=== PATIENT | male | born 1975 | race Caucasian/White ===

== ENCOUNTER 2024-07-16 08:48 | Emergency (ER) | payer OTHER ==
[~2024-07-16] VITALS: Ht 172.7 cm; Wt 82.0 kg
[2024-07-16 08:54] VITALS: O2SAT 98
[2024-07-16] MEDS: KETOROLAC 30MG/ML VIAL IM ONE (09:21)
[2024-07-16 09:51] VITALS: BP 138/86
[2024-07-16] MEDS: IBUPROFEN 400MG TABLET PO ONE (09:51)
[2024-07-16 09:53] VITALS: PULSE 76; RESP 16; O2SAT 99
== END 2024-07-16 09:50 | disposition home or self-care (01) ==
LOC: ER 08:48
DX: S01.01XA Laceration without foreign body of scalp, initial encounter (principal); E11.9 Type 2 diabetes mellitus without complications; G31.89 Other specified degenerative diseases of nervous system; W18.39XA Other fall on same level, initial encounter; Y93.89 Activity, other specified; Y92.89 Other specified places as the place of occurrence of the external cause; Y99.8 Other external cause status
CPT/HCPCS: 70450; 12001; 96372; 99285; J1885; Z7610 ×2